=== PATIENT | female | born 1985 | race Asian ===

== ENCOUNTER 2018-03-08 13:50 | Emergency (ER) | payer OTHER ==
[~2018-03-08] VITALS: Ht 167.6 cm; Wt 99.3 kg
[2018-03-08 13:55] VITALS: Ht 167.6 cm; Wt 99.3 kg
[2018-03-08 15:15] LABS: UA SPECIFIC GRAVITY >=1.030 (1.005-1.035); microscopic required? YES; urine erythrocyte 3+ (NEGATIVE)
[2018-03-08 15:19] LABS: BASOPHIL % 0.4 % (0-2); PLATELET COUNT 220 x10^3mcL (130-400); RED CELL DISTRIBUTION WIDTH 13.5 % (11.5-14.5)
[2018-03-08 16:12] VITALS: BP 143/75
== END 2018-03-08 16:12 | disposition home or self-care (01) ==
LOC: ED 13:50
PROVIDERS: Emergency Medicine
DX: O20.0 Threatened abortion (principal)
CPT/HCPCS: 36415